=== PATIENT | male | born 1965 | race African-American/Black ===

== ENCOUNTER 2023-03-20 15:28 | Emergency (ER) | payer OTHER ==
[2023-03-20] MEDS ORDERED: KETOROLAC TROMETHAMINE 60 MG/2 ML VIAL IM ONE (16:00)
[2023-03-20] MEDS ORDERED: ACETAMINOPHEN 325 MG TABLET (FP) PO ONE (16:00)
[2023-03-20] MEDS ORDERED: METHOCARBAMOL 500 MG TABLET PO ONE (16:00)
[2023-03-20] MEDS ORDERED: LABETALOL HCL 100 MG TABLET (FP) PO ONE (16:00)
[2023-03-20] MEDS ORDERED: LIDOCAINE 5% TOPICAL PATCH TP ONE (16:00)
[2023-03-20 16:26] VITALS: RESP 18; TEMP 98.2; BMI 24.0
[2023-03-20] MEDS ORDERED: METHOCARBAMOL 500 MG TABLET ONE (16:51)
[2023-03-20] MEDS ORDERED: KETOROLAC TROMETHAMINE 30 MG/1 ML VIAL ONE (16:51)
[2023-03-20] MEDS ORDERED: ACETAMINOPHEN 500 MG TABLET (FP) ONE (16:51)
[2023-03-20] MEDS ORDERED: LABETALOL HCL 100 MG TABLET (FP) ONE (16:51)
[2023-03-20] MEDS ORDERED: LIDOCAINE 5% TOPICAL PATCH ONE (16:51)
[2023-03-20] MEDS ORDERED: amLODIPine BESYLATE 10 MG TABLET (FP) PO ONE (18:31)
[2023-03-20] MEDS ORDERED: amLODIPine BESYLATE 5 MG TABLET (FP) ONE (18:37)
[2023-03-20 18:44] VITALS: PULSE 66
[2023-03-20] MEDS ORDERED: cloNIDine HCL 0.1 MG TABLET PO ONE (19:48)
[2023-03-20] MEDS ORDERED: cloNIDine HCL 0.1 MG TABLET ONE (19:51)
[2023-03-20 20:47] VITALS: BP 187/127
[2023-03-20] MEDS ORDERED: LIDOCAINE PATCH REMOVAL MC SCH (22:00)
== END 2023-03-20 20:50 | disposition home or self-care (01) ==
LOC: FER 15:28
PROC: 3E0233Z Introduction of Anti-inflammatory into Muscle, Percutaneous Approach (ICD-10-PCS; principal; 2023-03-20)
DX: I10 Essential (primary) hypertension (principal); M79.602 Pain in left arm; G89.29 Other chronic pain
CPT/HCPCS: 73030-TC-LT-FY; 93005; 99284-25

== ENCOUNTER 2023-05-26 05:36 | Observation (INO) | payer OTHER ==
[2023-05-26] MEDS ORDERED: LIDOCAINE 1%/EPI 1:100000 (20 ML MULTI DOSE VIAL) IJ ONE (11:22)
[2023-05-26] MEDS ORDERED: THROMBIN (BOVINE) 5,000 UNIT VIAL TP ONE ×2 (11:23→14:10)
[2023-05-26] MEDS ORDERED: VANCOMYCIN 1 GM in D5W (PRE-DOCKED) 1,000 MG/250 ML (RESTRICTED TO ID ONLY IVPB ONE (11:23)
[2023-05-26] MEDS ORDERED: GENTAMICIN 80MG PREMIX BAG IVPB ONE (11:23)
[2023-05-26] MEDS ORDERED: ceFAZolin SODIUM 1 GM VIAL IVPB ONE (11:23)
[2023-05-26] MEDS ORDERED: HYDROGEN PEROXIDE 473 ML PO ONE (11:24)
[2023-05-26] MEDS ORDERED: GENTAMICIN SO4 80 MG/2 ML VIAL ONE (14:10)
[2023-05-26] MEDS ORDERED: BACITRACIN ZINC 15 GM TUBE TOPICAL OINTMENT ONE (14:10)
[2023-05-26] MEDS ORDERED: PROPOFOL 40 ML ONE (15:41)
[2023-05-26] MEDS ORDERED: FENTANYL CITRATE/PF 50 MCG/ML VIAL ONE (15:41)
[2023-05-26] MEDS ORDERED: ROCURONIUM BROMIDE 50 MG/5 ML SYRINGE ONE (15:41)
[2023-05-26] MEDS ORDERED: MIDAZOLAM HCL 2 MG/2 ML SINGLE DOSE VIAL ONE (15:41)
[2023-05-26] MEDS ORDERED: SUCCINYLCHOLINE CHLORIDE 200 MG/10 ML SYRINGE ONE (15:41)
[2023-05-26 16:18] LABS: EOS % 2.1 % (0-4.5); HEMATOCRIT 39.8 % (35.4-49); HEMOGLOBIN 13.2 GM/dL (11.7-16.9); LYMPH % 41.8 % (8-40); MCH 27.7 pg (25.7-33.7); MCHC 33.2 g/dl (32.0-35.9); MEAN CELL VOLUME 83.5 fl (80-96); MEAN PLT VOLUME 8.6 fl (7.5-11.1); MONO % 6.1 % (3.8-10.2); PLATELET COUNT 183 10^3/uL (134-434); RBC 4.76 M/mm3 (4.00-5.60); RDW 15.5 % (11.9-15.9); WHITE BLOOD COUNT 3.5 K/mm3 (4.0-10.0)
[2023-05-26 16:26] LABS: INR 0.97 (0.83-1.09); PROTHROMBIN TIME (PATIENT) 11.3 SEC (9.7-13.0)
[2023-05-26 16:29] LABS: ACTIVATED PTT 30.5 SECONDS (25.2-36.5)
[2023-05-26] MEDS ORDERED: hydrALAZINE HCL 20 MG/ML VIAL IVPUSH PRN (16:39)
[2023-05-26] MEDS ORDERED: NITROGLYCERIN SUBLINGUAL 1/150 0.4 MG TAB SL PRN (16:40)
[2023-05-26 16:44] LABS: CHLORIDE 106 mmol/L (98-107); POTASSIUM 3.9 mmol/L (3.5-5.1); SODIUM 139 mmol/L (136-145)
[2023-05-26] MEDS ORDERED: ACETAMINOPHEN 500 MG TABLET (FP) PO PRN (16:44)
[2023-05-26 16:47] LABS: ALBUMIN 3.6 g/dl (3.4-5.0); ANION GAP 8 mmol/L (4-13); BLOOD UREA NITROGEN 17.5 mg/dL (7-18); CALCIUM 9.2 mg/dL (8.5-10.1); CO2 25 mmol/L (21-32); GLUCOSE,RANDOM 87 mg/dL (74-106)
[2023-05-26 16:50] LABS: CREATININE 1.4 mg/dL (0.55-1.3); SGOT/AST 20 U/L (15-37); SGPT/ALT 32 U/L (13-61)
[2023-05-26 16:52] LABS: BILIRUBIN,TOTAL 0.5 mg/dL (0.2-1); TOT PROT 7.1 g/dl (6.4-8.2)
[2023-05-26 16:53] LABS: ALK PHOS 70 U/L (45-117)
[2023-05-26] MEDS ORDERED: ASPIRIN 81 MG CHEWABLE TABLETS PO ONE (18:22)
[2023-05-26] MEDS ORDERED: ENOXAPARIN NA (PORCINE) 100 MG/1 ML DISP.SYRIN SQ ONE (18:32)
[2023-05-26 18:51] VITALS: BMI 24.6
[2023-05-26] MEDS: ISOSORBIDE MONONITRATE 30 MG TAB.SR.24H (FP) PO SCH (18:56)
[2023-05-26] MEDS: ENOXAPARIN NA (PORCINE) 100 MG/1 ML DISP.SYRIN SQ SCH (18:56)
[2023-05-26] MEDS ORDERED: PATIENT'S OWN MEDICATION (NON-FORMULARY) (Clonidine Hcl [Clonidine Hcl Er] 0.1 MG Tab.Er.1 PO SCH (22:00)
[2023-05-26] MEDS ORDERED: LABETALOL HCL 100 MG TABLET (FP) PO SCH (22:00)
[2023-05-27] MEDS: ENOXAPARIN NA (PORCINE) 100 MG/1 ML DISP.SYRIN SQ SCH (06:27)
[2023-05-27 07:09] LABS: HEMATOCRIT 38.7 % (35.4-49); HEMOGLOBIN 12.4 GM/dL (11.7-16.9); MCH 27.3 pg (25.7-33.7); MEAN CELL VOLUME 85.4 fl (80-96); PLATELET COUNT 187 10^3/uL (134-434); RBC 4.53 M/mm3 (4.00-5.60); WHITE BLOOD COUNT 2.9 K/mm3 (4.0-10.0)
[2023-05-27 07:36] LABS: BLOOD UREA NITROGEN 23.5 mg/dL (7-18); CALCIUM 8.7 mg/dL (8.5-10.1)
[2023-05-27 07:37] LABS: POTASSIUM 4.3 mmol/L (3.5-5.1)
[2023-05-27 07:40] LABS: CREATININE 1.8 mg/dL (0.55-1.3)
[2023-05-27] MEDS: cloNIDine HCL 0.1 MG TABLET PO SCH ×2 (08:55→21:26)
[2023-05-27] MEDS ORDERED: CHLORTHALIDONE 25 MG TABLET PO SCH (10:00)
[2023-05-27] MEDS ORDERED: LISINOPRIL 20 MG TABLET PO SCH ×2 (10:00)
[2023-05-27] MEDS ORDERED: NEBIVOLOL 2.5 MG TABLET (FP) PO SCH (10:00)
[2023-05-27] MEDS ORDERED: LABETALOL HCL 100 MG TABLET (FP) PO SCH ×2 (10:28→10:29)
[2023-05-27] MEDS: ASPIRIN 81 MG CHEWABLE TABLETS PO SCH (10:53)
[2023-05-27] MEDS: NIFEdipine E.R. 90 MG TABLET PO SCH (10:54)
[2023-05-27] MEDS: ISOSORBIDE MONONITRATE 30 MG TAB.SR.24H (FP) PO SCH (10:54)
[2023-05-27] MEDS: LABETALOL HCL 200 MG TABLET (FP) PO SCH ×2 (12:34→21:26)
[2023-05-27] MEDS: HEPARIN NA (PORCINE) 5,000 UNITS/ML 1ML VIAL SQ SCH (21:25)
[2023-05-28] MEDS: cloNIDine HCL 0.1 MG TABLET PO SCH ×3 (06:27→21:48)
[2023-05-28] MEDS: NIFEdipine E.R. 90 MG TABLET PO SCH ×2 (06:28→10:11)
[2023-05-28 06:51] LABS: BASO % 0.6 % (0-2.0); EOS % 2.1 % (0-4.5); HEMATOCRIT 37.8 % (35.4-49); HEMOGLOBIN 12.1 GM/dL (11.7-16.9); LYMPH % 34.3 % (8-40); MCH 27.5 pg (25.7-33.7); MEAN CELL VOLUME 85.8 fl (80-96); MEAN PLT VOLUME 8.9 fl (7.5-11.1); MONO % 9.4 % (3.8-10.2); NEUT % 53.6 % (42.8-82.8); PLATELET COUNT 181 10^3/uL (134-434); RBC 4.41 M/mm3 (4.00-5.60); RDW 14.7 % (11.9-15.9); WHITE BLOOD COUNT 3.6 K/mm3 (4.0-10.0)
[2023-05-28 07:05] LABS: POTASSIUM 4.2 mmol/L (3.5-5.1)
[2023-05-28 07:08] LABS: CALCIUM 8.5 mg/dL (8.5-10.1)
[2023-05-28 07:09] LABS: ALBUMIN 3.4 g/dl (3.4-5.0); BLOOD UREA NITROGEN 26.8 mg/dL (7-18)
[2023-05-28 07:12] LABS: CREATININE 1.9 mg/dL (0.55-1.3)
[2023-05-28 07:14] LABS: BILIRUBIN,TOTAL 0.5 mg/dL (0.2-1); TOT PROT 6.6 g/dl (6.4-8.2)
[2023-05-28] MEDS ORDERED: ISOSORBIDE MONONITRATE 60 MG TAB.SR.24H (FP) PO ONE (08:11)
[2023-05-28] MEDS ORDERED: REGADENOSON 0.4 MG/5 ML PRE-FILLED SYRINGE IVPUSH ONE ×2 (08:31→09:30)
[2023-05-28] MEDS: LABETALOL HCL 200 MG TABLET (FP) PO SCH ×3 (08:32→23:31)
[2023-05-28] MEDS: ISOSORBIDE MONONITRATE 30 MG TAB.SR.24H (FP) PO SCH (10:11)
[2023-05-28] MEDS: ASPIRIN 81 MG CHEWABLE TABLETS PO SCH (10:20)
[2023-05-28] MEDS: HEPARIN NA (PORCINE) 5,000 UNITS/ML 1ML VIAL SQ SCH (10:20)
[2023-05-28 19:24] VITALS: RESP 18
[2023-05-28] MEDS: APIXABAN 5 MG TABLET PO SCH (21:48)
[2023-05-29 08:59] VITALS: BP 161/105; PULSE 76; TEMP 98.3
[2023-05-29] MEDS ORDERED: LISINOPRIL 20 MG TABLET PO SCH (10:00)
[2023-05-29] MEDS: cloNIDine HCL 0.1 MG TABLET PO SCH (10:02)
[2023-05-29] MEDS: LABETALOL HCL 200 MG TABLET (FP) PO SCH (10:02)
[2023-05-29] MEDS: ISOSORBIDE MONONITRATE 30 MG TAB.SR.24H (FP) PO SCH (10:02)
[2023-05-29] MEDS: APIXABAN 5 MG TABLET PO SCH (10:02)
[2023-05-29] MEDS: ASPIRIN 81 MG CHEWABLE TABLETS PO SCH (10:03)
[2023-05-29] MEDS: NIFEdipine E.R. 90 MG TABLET PO SCH (10:03)
== END 2023-05-29 13:15 | disposition home or self-care (01) ==
LOC: J2C 05:36 → INTOOBSV 05:36 → J4W 18:29
PROVIDERS: ADMIT Internal Medicine; ATTEND Internal Medicine
PROC: 0RG Upper Joints, Fusion (ICD-10-PCS; principal; 2023-05-26 12:30)
DX: M47.812 Spondylosis without myelopathy or radiculopathy, cervical region (principal); Z53.8 Procedure and treatment not carried out for other reasons; I16.0 Hypertensive urgency; M40.202 Unspecified kyphosis, cervical region; R07.9 Chest pain, unspecified; R79.9 Abnormal finding of blood chemistry, unspecified; I21.4 Non-ST elevation (NSTEMI) myocardial infarction; I77.819 Aortic ectasia, unspecified site; N17.9 Acute kidney failure, unspecified; I48.91 Unspecified atrial fibrillation; K21.9 Gastro-esophageal reflux disease without esophagitis
CPT/HCPCS: 36415; 78452-TC; 80048; 80053; 82550; 82553; 84484; 85025; 85027; 85610; 85730; 86850; 86900; 86901; 93005; 93010; 93017; 93306-TC; 94760; A9502; G0378; J1644; J2785

== ENCOUNTER 2024-06-20 10:44 | Observation (INO) | payer OTHER ==
[2024-06-20] MEDS ORDERED: ACETAMINOPHEN INJECTION 100 ML ONE (12:04)
[2024-06-20] MEDS: ACETAMINOPHEN 1000 MG/100 ML BAG IVPB ONE (12:14)
[2024-06-20 12:25] LABS: BASO % 0.6 % (0-2.0); EOS % 2.1 % (0-4.5); HEMATOCRIT 38.4 % (35.4-49); HEMOGLOBIN 12.3 GM/dL (11.7-16.9); LYMPH % 24.5 % (8-40); MCH 27.5 pg (25.7-33.7); MCHC 32.2 g/dl (32.0-35.9); MEAN CELL VOLUME 85.5 fl (80-96); MEAN PLT VOLUME 8.4 fl (7.5-11.1); MONO % 6.2 % (3.8-10.2); NEUT % 66.6 % (42.8-82.8); PLATELET COUNT 202 10^3/uL (134-434); RBC 4.49 M/mm3 (4.00-5.60); RDW 16.1 % (11.9-15.9); WHITE BLOOD COUNT 4.5 K/mm3 (4.0-10.0)
[2024-06-20 12:30] LABS: INR 0.95 (0.83-1.09); PROTHROMBIN TIME (PATIENT) 10.8 SEC (9.7-13.0)
[2024-06-20 12:33] LABS: ACTIVATED PTT 32.7 SECONDS (25.2-36.5)
[2024-06-20 12:39] LABS: POTASSIUM 4.1 mmol/L (3.5-5.1)
[2024-06-20 12:41] LABS: CALCIUM 9.3 mg/dL (8.5-10.1)
[2024-06-20 12:42] LABS: ALBUMIN 3.7 g/dl (3.4-5.0); BLOOD UREA NITROGEN 23.2 mg/dL (7-18); MAGNESIUM 1.9 mg/dL (1.8-2.4)
[2024-06-20 12:45] LABS: CREATININE 1.8 mg/dL (0.55-1.3)
[2024-06-20 12:47] LABS: BILIRUBIN,TOTAL 0.4 mg/dL (0.2-1); TOT PROT 7.6 g/dl (6.4-8.2)
[2024-06-20 12:50] LABS: N-TERMINAL BNP 1450.7 pg/ml (5-125)
[2024-06-20] MEDS ORDERED: ASPIRIN 81 MG CHEWABLE TABLETS ONE (13:08)
[2024-06-20] MEDS: ASPIRIN 81 MG CHEWABLE TABLETS PO ONE (13:09)
[2024-06-20] MEDS ORDERED: LIDOCAINE 4% PATCH TP ONE (15:30)
[2024-06-20] MEDS: LIDOCAINE 4% PATCH TP ONE (15:48)
[2024-06-20] MEDS ORDERED: cloNIDine HCL 0.1 MG TABLET ONE (15:49)
[2024-06-20] MEDS: cloNIDine HCL 0.1 MG TABLET PO ONE (15:52)
[2024-06-20 16:59] VITALS: BMI 25.3
[2024-06-20] MEDS: hydrALAZINE HCL 20 MG/ML VIAL IVPUSH ONE (17:00)
[2024-06-20] MEDS ORDERED: NIFEdipine E.R 60 MG TABLET PO ONE (20:19)
[2024-06-20] MEDS: NIFEdipine E.R 60 MG TABLET PO SCH (20:20)
[2024-06-20] MEDS: cloNIDine HCL 0.1 MG TABLET PO SCH (21:31)
[2024-06-20] MEDS: LABETALOL HCL 100 MG TABLET (FP) PO SCH (21:31)
[2024-06-20] MEDS: APIXABAN 5 MG TABLET PO SCH (21:31)
[2024-06-20] MEDS: LIDOCAINE PATCH REMOVAL MC SCH (21:34)
[2024-06-21 08:30] LABS: BASO % 0.8 % (0-2.0); EOS % 3.1 % (0-4.5); HEMATOCRIT 39.6 % (35.4-49); HEMOGLOBIN 12.9 GM/dL (11.7-16.9); LYMPH % 39.8 % (8-40); MCH 27.8 pg (25.7-33.7); MCHC 32.6 g/dl (32.0-35.9); MEAN CELL VOLUME 85.3 fl (80-96); MEAN PLT VOLUME 8.8 fl (7.5-11.1); MONO % 8.9 % (3.8-10.2); NEUT % 47.4 % (42.8-82.8); PLATELET COUNT 214 10^3/uL (134-434); RBC 4.65 M/mm3 (4.00-5.60); RDW 15.8 % (11.9-15.9); WHITE BLOOD COUNT 3.4 K/mm3 (4.0-10.0)
[2024-06-21 08:32] LABS: POTASSIUM 4.1 mmol/L (3.5-5.1)
[2024-06-21 08:33] LABS: CALCIUM 9.7 mg/dL (8.5-10.1)
[2024-06-21 08:34] LABS: BLOOD UREA NITROGEN 23.4 mg/dL (7-18)
[2024-06-21 08:37] LABS: CREATININE 1.8 mg/dL (0.55-1.3); PHOSPHOROUS 3.7 mg/dL (2.5-4.9)
[2024-06-21] MEDS: VALSARTAN 160 MG TABLET PO SCH (09:34)
[2024-06-21] MEDS: HYDROCHLOROTHIAZIDE 25 MG TABLET (FP) PO SCH (09:35)
[2024-06-21] MEDS ORDERED: PATIENT'S OWN MEDICATION (NON-FORMULARY) (Candesartan/Hydrochlorothiazid [Candesartan-Hctz PO SCH (10:00)
[2024-06-21 11:06] VITALS: RESP 18
[2024-06-21] MEDS: ACETAMINOPHEN 325 MG TABLET (FP) PO PRN (11:46)
[2024-06-21] MEDS: hydrALAZINE HCL 20 MG/ML VIAL IVPUSH PRN (18:41)
[2024-06-21] MEDS: LABETALOL HCL 200 MG TABLET (FP) PO SCH (22:26)
[2024-06-22 08:30] LABS: HEMATOCRIT 38.2 % (35.4-49); HEMOGLOBIN 12.6 GM/dL (11.7-16.9); MCH 28.3 pg (25.7-33.7); MEAN CELL VOLUME 85.6 fl (80-96); MEAN PLT VOLUME 8.6 fl (7.5-11.1); PLATELET COUNT 206 10^3/uL (134-434); RBC 4.46 M/mm3 (4.00-5.60); RDW 15.8 % (11.9-15.9); WHITE BLOOD COUNT 2.8 K/mm3 (4.0-10.0)
[2024-06-22 08:47] LABS: POTASSIUM 3.8 mmol/L (3.5-5.1)
[2024-06-22 08:53] LABS: ALBUMIN 3.7 g/dl (3.4-5.0)
[2024-06-22 08:56] LABS: BLOOD UREA NITROGEN 24.8 mg/dL (7-18); CALCIUM 9.4 mg/dL (8.5-10.1); MAGNESIUM 1.9 mg/dL (1.8-2.4)
[2024-06-22 09:00] LABS: PHOSPHOROUS 4.1 mg/dL (2.5-4.9)
[2024-06-22 09:01] LABS: BILIRUBIN,TOTAL 0.7 mg/dL (0.2-1)
[2024-06-22 09:02] LABS: CREATININE 1.8 mg/dL (0.55-1.3)
[2024-06-22 09:03] LABS: TOT PROT 7.3 g/dl (6.4-8.2)
[2024-06-22 09:06] VITALS: TEMP 98.2
[2024-06-22] MEDS ORDERED: REGADENOSON 0.4 MG/5 ML PRE-FILLED SYRINGE IVPUSH ONE (10:15)
[2024-06-22] MEDS: REGADENOSON 0.4 MG/5 ML PRE-FILLED SYRINGE IVPUSH ONE (10:35)
[2024-06-22 15:22] VITALS: BP 157/100; PULSE 76
== END 2024-06-22 16:00 | disposition home or self-care (01) ==
LOC: JER 10:44 → JERBED 14:30 → J4W 16:35
PROVIDERS: ADMIT Internal Medicine; ATTEND Internal Medicine
PROC: 3E033NZ Introduction of Analgesics, Hypnotics, Sedatives into Peripheral Vein, Percutaneous Approach (ICD-10-PCS; principal; 2024-06-20)
PROC: 3E033GC Introduction of Other Therapeutic Substance into Peripheral Vein, Percutaneous Approach (ICD-10-PCS; 2024-06-20)
DX: I16.0 Hypertensive urgency (principal); R79.89 Other specified abnormal findings of blood chemistry; I48.0 Paroxysmal atrial fibrillation; I12.9 Hypertensive chronic kidney disease with stage 1 through stage 4 chronic kidney disease, or unspecified chronic kidney disease; M47.812 Spondylosis without myelopathy or radiculopathy, cervical region; I77.819 Aortic ectasia, unspecified site; N17.9 Acute kidney failure, unspecified; N18.9 Chronic kidney disease, unspecified; R07.9 Chest pain, unspecified; Z79.01 Long term (current) use of anticoagulants
CPT/HCPCS: 36415; 71046-TC-FY; 78452-TC; 80048; 80053; 83735; 83880; 84100; 84484; 85025; 85027; 85610; 85730; 93005; 93010; 93017; 93306-TC; 96374; 96375; 96376; 99285-25; A9502; G0378; J0131; J2785

== ENCOUNTER 2024-06-28 06:15 | Inpatient (IN) | payer OTHER ==
[2024-06-28] MEDS ORDERED: GENTAMICIN SO4 80 MG/2 ML VIAL ONE ×2 (07:00→08:22)
[2024-06-28] MEDS ORDERED: BUPIVACAINE LIPOSOME/PF (EXPAREL) 266 MG/20 ML VIAL ONE (07:00)
[2024-06-28] MEDS ORDERED: BUPIVACAINE HCL/PF 0.5% (5MG/ML) 10 ML VIAL ONE (07:00)
[2024-06-28] MEDS ORDERED: LIDOCAINE 1%/EPI 1:100000 (20 ML MULTI DOSE VIAL) ONE ×2 (07:00→08:22)
[2024-06-28] MEDS ORDERED: BACITRACIN ZINC 15 GM TUBE TOPICAL OINTMENT ONE (07:13)
[2024-06-28] MEDS: ceFAZolin SODIUM 1 GM VIAL IVPB ONE ×3 (07:24→12:57)
[2024-06-28] MEDS: LIDOCAINE 1%/EPI 1:100000 (20 ML MULTI DOSE VIAL) IJ ONE ×2 (07:24→13:05)
[2024-06-28] MEDS: VANCOMYCIN 1 GM in D5W (PRE-DOCKED) 1,000 MG/250 ML (RESTRICTED TO ID ONLY IVPB ONE ×2 (07:34→13:05)
[2024-06-28] MEDS ORDERED: HYDROmorphone HCl 2 MG/ML VIAL ONE (08:11)
[2024-06-28] MEDS ORDERED: ROCURONIUM BROMIDE 50 MG/5 ML SYRINGE ONE ×3 (08:12→13:53)
[2024-06-28] MEDS ORDERED: MIDAZOLAM HCL 2 MG/2 ML SINGLE DOSE VIAL ONE (08:12)
[2024-06-28] MEDS ORDERED: PROPOFOL 20 ML ONE ×4 (08:12→15:26)
[2024-06-28] MEDS: THROMBIN (BOVINE) 5,000 UNIT VIAL TP ONE ×2 (09:53→13:30)
[2024-06-28] MEDS: GENTAMICIN SO4 80 MG/2 ML VIAL IVPB ONE ×2 (09:54→13:30)
[2024-06-28] MEDS: HYDROGEN PEROXIDE 473 ML PO ONE ×2 (09:56→13:30)
[2024-06-28] MEDS: BUPIVACAINE HCL/PF 0.5% (5MG/ML) 10 ML VIAL IJ ONE ×2 (13:41→15:30)
[2024-06-28] MEDS: BUPIVACAINE LIPOSOME/PF (EXPAREL) 266 MG/20 ML VIAL NR ONE ×2 (13:41→15:30)
[2024-06-28] MEDS ORDERED: SUGAMMADEX SODIUM 200 MG/2 ML VIAL ONE (15:26)
[2024-06-28] MEDS ORDERED: morphine CARPU-JECT 4 MG/1 ML DISP.SYRIN IVPUSH PRN (15:44)
[2024-06-28] MEDS ORDERED: oxyCODONE HCL 5 MG TABLET PO PRN ×2 (15:44)
[2024-06-28] MEDS ORDERED: diphenhydrAMINE HCL 25 MG CAPSULE (FP) PO PRN (15:44)
[2024-06-28] MEDS ORDERED: HEPARIN NA (PORCINE) 5,000 UNITS/ML 1ML VIAL SQ SCH (15:45)
[2024-06-28] MEDS: LACTATED RINGERS SOLUTION 1,000 ML/1,000 ML INFUS.BAG IV SCH (17:20)
[2024-06-28] MEDS ORDERED: HYDROmorphone HCL CARPU-JECT 2 MG/1 ML DISP.SYRIN ONE (18:13)
[2024-06-28] MEDS: HYDROmorphone HCl 2 MG/ML VIAL IVPUSH SCH (18:16)
[2024-06-28] MEDS: LABETALOL HCL 5 MG/1 ML (100MG/20 ML VIAL) IVPUSH ONE (18:17)
[2024-06-28] MEDS: HYDROmorphone HCl 2 MG/ML VIAL IVPUSH PRN (18:30)
[2024-06-28] MEDS: HYDROmorphone *PCA* 10MG/50ML DISP.SYRIN PCA SCH (18:47)
[2024-06-28] MEDS ORDERED: ceFAZolin SODIUM 1 GM VIAL ONE (19:09)
[2024-06-28] MEDS: CEFAZOLIN 1 GM/D5W 1 GM/50 ML BAG IVPB SCH (19:15)
[2024-06-28] MEDS: HEPARIN NA (PORCINE) 5,000 UNITS/ML 1ML VIAL SQ SCH (21:38)
[2024-06-28] MEDS: NIFEdipine E.R. 90 MG TABLET PO SCH (21:38)
[2024-06-28] MEDS: LABETALOL HCL 200 MG TABLET (FP) PO SCH (21:38)
[2024-06-28] MEDS: DOCUSATE SODIUM 100 MG CAPSULE (FP) PO SCH (21:38)
[2024-06-28] MEDS: ONDANSETRON 4 MG/2 ML VIAL IVPUSH PRN (22:24)
[2024-06-28 23:11] VITALS: BMI 21.7
[2024-06-29] MEDS: cloNIDine HCL 0.1 MG TABLET PO SCH (00:04)
[2024-06-29] MEDS: hydrALAZINE HCL 20 MG/ML VIAL IVPUSH ONE (02:47)
[2024-06-29] MEDS: HYDROCHLOROTHIAZIDE 12.5 MG CAPSULE (FP) PO ONE (08:01)
[2024-06-29 09:35] LABS: HEMATOCRIT 36.8 % (35.4-49); HEMOGLOBIN 11.8 GM/dL (11.7-16.9); MCH 27.6 pg (25.7-33.7); MEAN CELL VOLUME 86.1 fl (80-96); MEAN PLT VOLUME 9.1 fl (7.5-11.1); PLATELET COUNT 204 10^3/uL (134-434); RBC 4.28 M/mm3 (4.00-5.60); RDW 15.2 % (11.9-15.9); WHITE BLOOD COUNT 7.9 K/mm3 (4.0-10.0)
[2024-06-29 09:49] LABS: POTASSIUM 3.8 mmol/L (3.5-5.1)
[2024-06-29 09:59] LABS: BLOOD UREA NITROGEN 22.2 mg/dL (7-18)
[2024-06-29] MEDS: FERROUS SO4 325 MG TABLET (FP) PO SCH (10:01)
[2024-06-29] MEDS: VALSARTAN 160 MG TABLET PO SCH (10:01)
[2024-06-29] MEDS: FOLIC ACID 1 MG TABLET (FP) PO SCH (10:01)
[2024-06-29 10:02] LABS: CALCIUM 9.5 mg/dL (8.5-10.1)
[2024-06-29 10:03] LABS: CREATININE 1.8 mg/dL (0.55-1.3)
[2024-06-29] MEDS ORDERED: ACETAMINOPHEN 650 MG/20.3 ML ORAL SOLUTION (CUPS) PO PRN (13:33)
[2024-06-29] MEDS ORDERED: diazePAM 2 MG TABLET PO PRN (14:00)
[2024-06-29] MEDS: ACETAMINOPHEN 650 MG/20.3 ML ORAL SOLUTION (CUPS) PO SCH (14:33)
[2024-06-29 14:50] LABS: EPI CELLS 5 /uL (0-25.1); HYALINE CASTS 0 /uL (0-3.1); URINE APPEARANCE CLOUDY; URINE BACTERIA 8 /uL (0-1359); URINE BILIRUBIN NEGATIVE (NEGATIVE); URINE COLOR YELLOW; URINE GLUCOSE (UA) NEGATIVE (NEGATIVE); URINE KETONE NEGATIVE (NEGATIVE); URINE LEUK ESTERASE 1+ (NEGATIVE); URINE NITRITE NEGATIVE (NEGATIVE); URINE PROTEIN 2+ (NEGATIVE); URINE RBC 1017 /uL (0-23.9); URINE UROBILINOGEN 0.2 mg/dL (0.2-1.0); URINE WBC 34 /uL (0-25.8)
[2024-06-30 10:32] LABS: BASO % 0.3 % (0-2.0); EOS % 0.2 % (0-4.5); HEMATOCRIT 35.7 % (35.4-49); HEMOGLOBIN 11.4 GM/dL (11.7-16.9); LYMPH % 11.4 % (8-40); MCH 27.4 pg (25.7-33.7); MCHC 31.8 g/dl (32.0-35.9); MEAN CELL VOLUME 86.3 fl (80-96); MEAN PLT VOLUME 9.1 fl (7.5-11.1); MONO % 7.5 % (3.8-10.2); NEUT % 80.6 % (42.8-82.8); PLATELET COUNT 191 10^3/uL (134-434); RBC 4.14 M/mm3 (4.00-5.60); RDW 15.4 % (11.9-15.9); WHITE BLOOD COUNT 8.1 K/mm3 (4.0-10.0)
[2024-06-30 10:49] LABS: POTASSIUM 3.8 mmol/L (3.5-5.1)
[2024-06-30 10:55] LABS: ALBUMIN 3.3 g/dl (3.4-5.0); BLOOD UREA NITROGEN 21.8 mg/dL (7-18); CALCIUM 9.3 mg/dL (8.5-10.1)
[2024-06-30 10:58] LABS: CREATININE 1.8 mg/dL (0.55-1.3)
[2024-06-30 10:59] LABS: BILIRUBIN,TOTAL 0.6 mg/dL (0.2-1)
[2024-06-30 11:00] LABS: TOT PROT 6.6 g/dl (6.4-8.2)
[2024-06-30] MEDS: HYDROCHLOROTHIAZIDE 12.5 MG CAPSULE (FP) PO SCH (12:43)
[2024-06-30] MEDS ORDERED: oxyCODONE HCL 5 MG TABLET PO PRN ×2 (14:37)
[2024-06-30] MEDS ORDERED: HYDROmorphone HCl 2 MG/ML VIAL IVPB PRN (14:37)
[2024-07-01 10:42] VITALS: BP 167/101; PULSE 94; RESP 18; TEMP 98.4
== END 2024-07-01 14:07 | disposition home or self-care (01) | DRG 451 ==
LOC: J7W 06:15 → J2C 08:44 → J8W 19:53
PROVIDERS: ADMIT Neurological Surgery; ATTEND Nurse Practitioner Family
PROC: 0RP104Z Removal of Internal Fixation Device from Cervical Vertebral Joint, Open Approach (ICD-10-PCS; 2024-06-28)
PROC: 0RG2071 Fusion of 2 or more Cervical Vertebral Joints with Autologous Tissue Substitute, Posterior Approach, Posterior Column, Open Approach (ICD-10-PCS; 2024-06-28)
PROC: 0RG4071 Fusion of Cervicothoracic Vertebral Joint with Autologous Tissue Substitute, Posterior Approach, Posterior Column, Open Approach (ICD-10-PCS; 2024-06-28)
PROC: 00NW0ZZ Release Cervical Spinal Cord, Open Approach (ICD-10-PCS; 2024-06-28)
PROC: 4A1004G Monitoring of Central Nervous Electrical Activity, Intraoperative, Open Approach (ICD-10-PCS; 2024-06-28)
PROC: 0RGA071 Fusion of Thoracolumbar Vertebral Joint with Autologous Tissue Substitute, Posterior Approach, Posterior Column, Open Approach (ICD-10-PCS; principal; 2024-06-28 08:00)
DX: M96.0 Pseudarthrosis after fusion or arthrodesis (principal); G95.9 Disease of spinal cord, unspecified; M50.03 Cervical disc disorder with myelopathy, cervicothoracic region; M48.03 Spinal stenosis, cervicothoracic region; M47.892 Other spondylosis, cervical region; I48.0 Paroxysmal atrial fibrillation; I12.9 Hypertensive chronic kidney disease with stage 1 through stage 4 chronic kidney disease, or unspecified chronic kidney disease; N18.9 Chronic kidney disease, unspecified; Y83.9 Surgical procedure, unspecified as the cause of abnormal reaction of the patient, or of later complication, without mention of misadventure at the time of the procedure
CPT/HCPCS: 36415; 72125-TC; 76000-TC-FY; 80048; 80053; 81003; 83735; 85025; 85027; 86850; 86900; 86901; 93005; 93010; 94760; 97116-GP; 97161-GP; C1713; J1644

== ENCOUNTER 2025-01-06 16:52 | Inpatient (IN) | payer OTHER ==
[2025-01-06] MEDS: SODIUM CHLORIDE 1,000 ML IV SCH ×2 (17:50→22:34)
[2025-01-06] MEDS: SODIUM CHLORIDE 1,000 ML IV STA (17:55)
[2025-01-06 18:14] LABS: ABSOLUTE IMMATURE GRANULOCYTES 0.01 x10^3/uL (0.0-0.031); BASOPHILS # 0.01 x10^3/uL (0.01-0.08); EOSINOPHIL % 2.5 % (0.8-7.0); EOSINOPHILS # 0.12 x10^3/uL (0.04-0.54); HEMATOCRIT 37.3 % (40.1-51.0); HEMOGLOBIN 11.6 g/dL (13.7-17.5); MCHC 31.1 g/dl (32.3-36.5); MEAN CELL VOLUME 85.4 fl (79.0-92.2); MEAN PLT VOLUME 10.4 fl (9.4-12.4); MONOCYTE % 8.4 % (5.3-12.2); PLATELET COUNT 209 x10^3/uL (163-337); RDW 15.7 % (12.2-16.1)
[2025-01-06 18:26] LABS: ACTIVATED PTT 29.1 SECONDS (25.2-36.5)
[2025-01-06 18:40] LABS: CHLORIDE 107 mmol/L (98-107); POTASSIUM 4.4 mmol/L (3.5-5.1); SODIUM 139 mmol/L (136-145)
[2025-01-06 18:44] LABS: ALBUMIN 3.7 g/dl (3.4-5.0); ANION GAP 6 mmol/L (4-13); CALCIUM 9.2 mg/dL (8.5-10.1); CO2 26 mmol/L (21-32)
[2025-01-06 18:46] LABS: GLUCOSE,RANDOM 100 mg/dL (74-106)
[2025-01-06 18:47] LABS: BLOOD UREA NITROGEN 25.7 mg/dL (7-18)
[2025-01-06 18:48] LABS: CREATININE 1.9 mg/dL (0.55-1.3)
[2025-01-06 18:50] LABS: CHOLESTEROL 220 mg/dL (50-200); SGOT/AST 18 U/L (15-37); SGPT/ALT 14 U/L (13-61); TOT PROT 7.4 g/dl (6.4-8.2)
[2025-01-06 18:51] LABS: BILIRUBIN,TOTAL 0.3 mg/dL (0.2-1); LDL CHOLESTEROL (ONLY SJRH) 91 mg/dL (5-100)
[2025-01-06 18:53] LABS: ALK PHOS 66 U/L (45-117); HDL CHOLESTEROL 74 mg/dL (40-60)
[2025-01-06 19:17] LABS: EPI CELLS 4 /uL (0-25.1); HYALINE CASTS 0 /uL (0-3.1); URINE APPEARANCE CLEAR; URINE BACTERIA 17 /uL (0-1359); URINE BILIRUBIN NEGATIVE (NEGATIVE); URINE COLOR YELLOW; URINE GLUCOSE (UA) NEGATIVE (NEGATIVE); URINE KETONE NEGATIVE (NEGATIVE); URINE LEUK ESTERASE NEGATIVE (NEGATIVE); URINE NITRITE NEGATIVE (NEGATIVE); URINE PROTEIN 1+ (NEGATIVE); URINE RBC 6 /uL (0-23.9); URINE UROBILINOGEN 0.2 mg/dL (0.2-1.0); URINE WBC 7 /uL (0-25.8)
[2025-01-06] MEDS ORDERED: ASPIRIN COATED 81 MG TABLET.EC ONE (19:27)
[2025-01-06] MEDS: ASPIRIN COATED 81 MG TABLET.EC PO ONE (19:37)
[2025-01-06] MEDS ORDERED: ACETAMINOPHEN INJECTION 100 ML ONE (21:02)
[2025-01-06] MEDS: ACETAMINOPHEN 1000 MG/100 ML BAG IVPB ONE (21:24)
[2025-01-06] MEDS ORDERED: hydrALAZINE HCL 20 MG/ML VIAL ONE (22:29)
[2025-01-06] MEDS: hydrALAZINE HCL 20 MG/ML VIAL IVPUSH ONE (22:33)
[2025-01-07] MEDS: LABETALOL HCL 20 MG/4 ML VIAL IVPUSH ONE (03:13)
[2025-01-07 07:14] LABS: ABSOLUTE IMMATURE GRANULOCYTES 0.01 x10^3/uL (0.0-0.031); BASOPHILS # 0.02 x10^3/uL (0.01-0.08); EOSINOPHIL % 2.6 % (0.8-7.0); EOSINOPHILS # 0.11 x10^3/uL (0.04-0.54); HEMATOCRIT 38.5 % (40.1-51.0); HEMOGLOBIN 12.3 g/dL (13.7-17.5); MCHC 31.9 g/dl (32.3-36.5); MEAN CELL VOLUME 83.9 fl (79.0-92.2); MEAN PLT VOLUME 10.6 fl (9.4-12.4); MONOCYTE # 0.35 x10^3/uL (0.30-0.82); MONOCYTE % 8.4 % (5.3-12.2); PLATELET COUNT 215 x10^3/uL (163-337); RDW 15.4 % (12.2-16.1)
[2025-01-07 07:33] LABS: POTASSIUM 3.9 mmol/L (3.5-5.1)
[2025-01-07 07:54] LABS: ALBUMIN 3.6 g/dl (3.4-5.0); BLOOD UREA NITROGEN 18.5 mg/dL (7-18); CALCIUM 9.6 mg/dL (8.5-10.1)
[2025-01-07 07:55] LABS: MAGNESIUM 2.1 mg/dL (1.8-2.4)
[2025-01-07 07:57] LABS: CREATININE 1.5 mg/dL (0.55-1.3)
[2025-01-07 07:58] LABS: PHOSPHOROUS 3.3 mg/dL (2.5-4.9)
[2025-01-07 07:59] LABS: BILIRUBIN,TOTAL 0.5 mg/dL (0.2-1); TOT PROT 7.3 g/dl (6.4-8.2)
[2025-01-07] MEDS: HYDROCHLOROTHIAZIDE 25 MG TABLET (FP) PO SCH (09:23)
[2025-01-07] MEDS: NIFEdipine E.R 60 MG TABLET PO SCH (09:23)
[2025-01-07] MEDS: SPIRONOLACTONE 25 MG TABLET PO SCH (09:23)
[2025-01-07] MEDS: PREGABALIN 75 MG CAPSULE PO SCH (09:23)
[2025-01-07] MEDS: LABETALOL HCL 200 MG TABLET (FP) PO SCH (09:23)
[2025-01-07] MEDS: VALSARTAN 160 MG TABLET PO SCH (09:23)
[2025-01-07] MEDS ORDERED: PATIENT'S OWN MEDICATION (NON-FORMULARY) (Candesartan/Hydrochlorothiazid [Candesartan-Hctz PO SCH (10:00)
[2025-01-07] MEDS ORDERED: APIXABAN 5 MG TABLET PO SCH (10:00)
[2025-01-07] MEDS ORDERED: ENOXAPARIN NA (PORCINE) 40 MG/0.4 ML DISP.SYRIN SQ SCH (10:00)
[2025-01-07] MEDS ORDERED: LABETALOL HCL 200 MG TABLET (FP) PO SCH (10:00)
[2025-01-07] MEDS: hydrALAZINE HCL 25 MG TABLET (FP) PO SCH (12:45)
[2025-01-07] MEDS: cloNIDine-TTS 0.3 MG /24 HRS PATCH.TDWK TD SCH (13:24)
[2025-01-07] MEDS: ATORVASTATIN CA 40 MG TABLET (FP) PO SCH (22:03)
[2025-01-08] MEDS: HYDROCHLOROTHIAZIDE 25 MG TABLET (FP) PO SCH (09:02)
[2025-01-08 11:51] LABS: HEMATOCRIT 42.9 % (40.1-51.0); HEMOGLOBIN 13.7 g/dL (13.7-17.5); MCHC 31.9 g/dl (32.3-36.5); MEAN PLT VOLUME 11.1 fl (9.4-12.4); PLATELET COUNT 250 x10^3/uL (163-337); RDW 15.5 % (12.2-16.1)
[2025-01-08 12:10] LABS: POTASSIUM 4.3 mmol/L (3.5-5.1)
[2025-01-08 12:13] LABS: CALCIUM 9.9 mg/dL (8.5-10.1)
[2025-01-08 12:16] LABS: CREATININE 1.9 mg/dL (0.55-1.3)
[2025-01-08] MEDS: APIXABAN 5 MG TABLET PO SCH ×2 (14:00→21:25)
[2025-01-08] MEDS: ASPIRIN COATED 81 MG TABLET.EC PO SCH (16:12)
[2025-01-09 07:51] LABS: HEMOGLOBIN 12.8 g/dL (13.7-17.5); MEAN CELL VOLUME 83.3 fl (79.0-92.2); MEAN PLT VOLUME 11.2 fl (9.4-12.4); PLATELET COUNT 225 x10^3/uL (163-337); RDW 15.1 % (12.2-16.1)
[2025-01-09 08:05] LABS: POTASSIUM 3.7 mmol/L (3.5-5.1)
[2025-01-09 08:06] LABS: CALCIUM 9.6 mg/dL (8.5-10.1)
[2025-01-09 08:08] LABS: BLOOD UREA NITROGEN 29.8 mg/dL (7-18)
[2025-01-09] MEDS: LORazepam 2 MG/ML SDV VIAL IVPUSH ONE (19:26)
[2025-01-09 21:50] VITALS: BMI 27.0
[2025-01-09] MEDS ORDERED: hydrALAZINE HCL 25 MG TABLET (FP) PO SCH (22:00)
[2025-01-09] MEDS: PRAMIPEXOLE DIHYDROCHLORIDE 0.25 MG TABLET PO SCH (22:15)
[2025-01-09] MEDS: DIVALPROEX NA *ER* EXTEND REL 500 MG TABLET.SA (FP) PO SCH (22:15)
[2025-01-09 23:55] VITALS: RESP 18
[2025-01-10 06:46] LABS: HEMOGLOBIN 12.2 g/dL (13.7-17.5); RDW 15.1 % (12.2-16.1)
[2025-01-10 06:47] LABS: BASOPHILS # 0.02 x10^3/uL (0.01-0.08); EOSINOPHIL % 2.8 % (0.8-7.0); EOSINOPHILS # 0.09 x10^3/uL (0.04-0.54); HEMATOCRIT 38.1 % (40.1-51.0); MEAN CELL VOLUME 83.7 fl (79.0-92.2); MEAN PLT VOLUME 10.5 fl (9.4-12.4); MONOCYTE # 0.35 x10^3/uL (0.30-0.82); MONOCYTE % 10.8 % (5.3-12.2); PLATELET COUNT 207 x10^3/uL (163-337)
[2025-01-10 07:10] LABS: BLOOD UREA NITROGEN 29.2 mg/dL (7-18); CALCIUM 9.6 mg/dL (8.5-10.1)
[2025-01-10 07:14] LABS: CREATININE 2.1 mg/dL (0.55-1.3)
[2025-01-10 09:42] VITALS: BP 132/86; PULSE 86; TEMP 97.7
== END 2025-01-10 14:40 | disposition home or self-care (01) | DRG 93 ==
LOC: JER 16:52 → JERBED 21:10 → OBSVTOIN 21:13 → J4W 01-07 00:05
PROVIDERS: ADMIT Hospitalist; ATTEND Internal Medicine
DX: R20.2 Paresthesia of skin (principal); R53.1 Weakness; G25.81 Restless legs syndrome; I12.9 Hypertensive chronic kidney disease with stage 1 through stage 4 chronic kidney disease, or unspecified chronic kidney disease; N18.31 Chronic kidney disease, stage 3a; M47.892 Other spondylosis, cervical region; I48.0 Paroxysmal atrial fibrillation; E78.5 Hyperlipidemia, unspecified; I95.1 Orthostatic hypotension
CPT/HCPCS: 36415; 70450-TC; 70551-TC; 72141-TC; 72156-TC; 80048; 80053; 80061; 81003; 82550; 82553; 82962; 83036; 83735; 84100; 84484; 85025; 85027; 85610; 85730; 86850; 86900; 86901; 87086; 93005; 93010; 93306-TC; 93880-TC; 99285-25; A9576; G0378

== ENCOUNTER 2025-05-30 10:19 | Inpatient (IN) | payer OTHER ==
[2025-05-30 11:14] LABS: ABSOLUTE IMMATURE GRANULOCYTES 0.01 x10^3/uL (0.0-0.031); BASOPHILS # 0.03 x10^3/uL (0.01-0.08); EOSINOPHIL % 2.0 % (0.8-7.0); EOSINOPHILS # 0.13 x10^3/uL (0.04-0.54); MCHC 31.7 g/dl (32.3-36.5); MEAN CELL VOLUME 87.5 fl (79.0-92.2); MEAN PLT VOLUME 10.7 fl (9.4-12.4); MONOCYTE # 0.46 x10^3/uL (0.30-0.82); MONOCYTE % 7.0 % (5.3-12.2); RDW 14.5 % (12.2-16.1)
[2025-05-30 11:21] LABS: INR 0.94 (0.83-1.09); PROTHROMBIN TIME (PATIENT) 10.2 SEC (9.7-13.0)
[2025-05-30 11:23] LABS: ACTIVATED PTT 28.8 SECONDS (25.2-36.5)
[2025-05-30] MEDS: SODIUM CHLORIDE 0.9% 500 ML INFUS.BAG IV ONE (11:25)
[2025-05-30] MEDS: SODIUM CHLORIDE 1,000 ML IV SCH (11:26)
[2025-05-30 11:36] LABS: URINE APPEARANCE CLEAR; URINE BILIRUBIN NEGATIVE (NEGATIVE); URINE COLOR YELLOW; URINE GLUCOSE (UA) NEGATIVE (NEGATIVE); URINE KETONE NEGATIVE (NEGATIVE); URINE LEUK ESTERASE NEGATIVE (NEGATIVE); URINE NITRITE NEGATIVE (NEGATIVE); URINE PROTEIN NEGATIVE (NEGATIVE); URINE UROBILINOGEN 0.2 mg/dL (0.2-1.0)
[2025-05-30 11:39] LABS: GLUCOSE,RANDOM 107 mg/dL (74-106); TOT PROT 7.2 g/dl (6.4-8.2)
[2025-05-30 11:40] LABS: CO2 27 mmol/L (21-32)
[2025-05-30 11:41] LABS: ALK PHOS 50 U/L (40-150)
[2025-05-30 11:44] LABS: CREATININE 1.84 mg/dL (0.55-1.3); LDL CHOLESTEROL (ONLY SJRH) 61 mg/dL (5-100); SGOT/AST 18 U/L (5-34); SGPT/ALT 12 U/L (0-55)
[2025-05-30] MEDS ORDERED: TETRACAINE 0.5% OPHTH SOLN 2 ML BOTTLE ONE (12:09)
[2025-05-30] MEDS ORDERED: ACETAMINOPHEN INJECTION 100 ML ONE (12:09)
[2025-05-30] MEDS ORDERED: TETRAHYDROZOLINE HCL EYE DROPS OD ONE (12:15)
[2025-05-30] MEDS ORDERED: GABAPENTIN 300 MG CAPSULE ONE (13:24)
[2025-05-30] MEDS: GABAPENTIN 300 MG CAPSULE PO ONE (13:30)
[2025-05-30] MEDS: LABETALOL HCL 200 MG TABLET (FP) PO ONE (17:34)
[2025-05-30] MEDS: LABETALOL HCL 20 MG/4 ML VIAL IVPUSH ONE ×2 (19:03→20:39)
[2025-05-30] MEDS ORDERED: CANDESARTAN CILEXETIL PO SCH (22:00)
[2025-05-30] MEDS: LABETALOL HCL 200 MG TABLET (FP) PO SCH (22:04)
[2025-05-30] MEDS: NIFEdipine E.R 60 MG TABLET PO SCH (22:04)
[2025-05-30] MEDS: APIXABAN 5 MG TABLET PO SCH (22:04)
[2025-05-30] MEDS: ATORVASTATIN CA 80 MG TABLET (FP) PO SCH (22:05)
[2025-05-30] MEDS: VALSARTAN 160 MG TABLET PO SCH (22:05)
[2025-05-30 23:45] LABS: HIV INTERPRETATION NEGATIVE (NEGATIVE)
[2025-05-30 23:46] LABS: HCV DIAGNOSTIC IN-HOUSE W/RFLX NON-REACTIVE (NONREACTIVE)
[2025-05-31 07:47] LABS: ABSOLUTE IMMATURE GRANULOCYTES 0.00 x10^3/uL (0.0-0.031); BASOPHILS # 0.03 x10^3/uL (0.01-0.08); EOSINOPHIL % 2.9 % (0.8-7.0); EOSINOPHILS # 0.13 x10^3/uL (0.04-0.54); MCHC 32.0 g/dl (32.3-36.5); MEAN CELL VOLUME 86.1 fl (79.0-92.2); MEAN PLT VOLUME 10.8 fl (9.4-12.4); MONOCYTE # 0.33 x10^3/uL (0.30-0.82); MONOCYTE % 7.4 % (5.3-12.2); RDW 14.4 % (12.2-16.1)
[2025-05-31 08:16] LABS: GLUCOSE,RANDOM 103.0 mg/dL (74-106); TOT PROT 7.1 g/dl (6.4-8.2)
[2025-05-31 08:18] LABS: CO2 25.0 mmol/L (21-32)
[2025-05-31 08:19] LABS: ALK PHOS 53.0 U/L (40-150)
[2025-05-31 08:22] LABS: CREATININE 1.66 mg/dL (0.55-1.3); SGOT/AST 18.0 U/L (5-34); SGPT/ALT 10.0 U/L (0-55)
[2025-05-31] MEDS ORDERED: SPIRONOLACTONE 25 MG TABLET PO SCH (10:00)
[2025-05-31] MEDS: CHLORTHALIDONE 25 MG TABLET PO SCH (14:01)
[2025-06-01 07:31] LABS: ABSOLUTE IMMATURE GRANULOCYTES 0.01 x10^3/uL (0.0-0.031); BASOPHILS # 0.02 x10^3/uL (0.01-0.08); EOSINOPHIL % 2.1 % (0.8-7.0); EOSINOPHILS # 0.10 x10^3/uL (0.04-0.54); MCHC 31.7 g/dl (32.3-36.5); MEAN CELL VOLUME 85.6 fl (79.0-92.2); MEAN PLT VOLUME 10.5 fl (9.4-12.4); MONOCYTE # 0.40 x10^3/uL (0.30-0.82); MONOCYTE % 8.5 % (5.3-12.2); RDW 13.9 % (12.2-16.1)
[2025-06-01 07:53] LABS: GLUCOSE,RANDOM 103.0 mg/dL (74-106); TOT PROT 6.8 g/dl (6.4-8.2)
[2025-06-01 07:54] LABS: CO2 23.0 mmol/L (21-32)
[2025-06-01 07:56] LABS: ALK PHOS 52.0 U/L (40-150)
[2025-06-01 07:58] LABS: CREATININE 1.9 mg/dL (0.55-1.3); SGOT/AST 18.0 U/L (5-34); SGPT/ALT 10.0 U/L (0-55)
[2025-06-01] MEDS: LIDOCAINE 5% TOPICAL PATCH TP SCH (10:31)
[2025-06-01] MEDS: ACETAMINOPHEN 500 MG TABLET (FP) PO SCH (10:31)
[2025-06-01] MEDS: ACETAMINOPHEN 325 MG TABLET (FP) PO PRN (15:19)
[2025-06-01] MEDS: LIDOCAINE PATCH REMOVAL MC SCH (21:42)
[2025-06-02 08:06] LABS: ABSOLUTE IMMATURE GRANULOCYTES 0.01 x10^3/uL (0.0-0.031); BASOPHILS # 0.03 x10^3/uL (0.01-0.08); EOSINOPHIL % 3.2 % (0.8-7.0); EOSINOPHILS # 0.10 x10^3/uL (0.04-0.54); MCHC 32.3 g/dl (32.3-36.5); MEAN CELL VOLUME 85.6 fl (79.0-92.2); MEAN PLT VOLUME 10.9 fl (9.4-12.4); MONOCYTE # 0.35 x10^3/uL (0.30-0.82); MONOCYTE % 11.1 % (5.3-12.2); RDW 14.0 % (12.2-16.1)
[2025-06-02 08:35] LABS: GLUCOSE,RANDOM 111.0 mg/dL (74-106); TOT PROT 6.8 g/dl (6.4-8.2)
[2025-06-02 08:36] LABS: CO2 25.0 mmol/L (21-32)
[2025-06-02 08:38] LABS: ALK PHOS 49.0 U/L (40-150)
[2025-06-02 08:41] LABS: CREATININE 1.94 mg/dL (0.55-1.3); SGOT/AST 16.0 U/L (5-34); SGPT/ALT 11.0 U/L (0-55)
[2025-06-02 12:18] LABS: URINE APPEARANCE CLEAR; URINE BILIRUBIN NEGATIVE (NEGATIVE); URINE COLOR YELLOW; URINE GLUCOSE (UA) NEGATIVE (NEGATIVE); URINE KETONE NEGATIVE (NEGATIVE); URINE LEUK ESTERASE NEGATIVE (NEGATIVE); URINE NITRITE NEGATIVE (NEGATIVE); URINE PROTEIN NEGATIVE (NEGATIVE); URINE UROBILINOGEN 0.2 mg/dL (0.2-1.0)
[2025-06-03 07:58] LABS: ABSOLUTE IMMATURE GRANULOCYTES 0.01 x10^3/uL (0.0-0.031); BASOPHILS # 0.02 x10^3/uL (0.01-0.08); EOSINOPHIL % 2.8 % (0.8-7.0); EOSINOPHILS # 0.09 x10^3/uL (0.04-0.54); MCHC 32.0 g/dl (32.3-36.5); MEAN CELL VOLUME 85.2 fl (79.0-92.2); MEAN PLT VOLUME 10.9 fl (9.4-12.4); MONOCYTE # 0.35 x10^3/uL (0.30-0.82); MONOCYTE % 10.8 % (5.3-12.2); RDW 13.7 % (12.2-16.1)
[2025-06-03 08:22] LABS: GLUCOSE,RANDOM 96.0 mg/dL (74-106); TOT PROT 6.8 g/dl (6.4-8.2)
[2025-06-03 08:23] LABS: CO2 25.0 mmol/L (21-32)
[2025-06-03 08:24] LABS: ALK PHOS 49.0 U/L (40-150)
[2025-06-03 08:27] LABS: CREATININE 1.9 mg/dL (0.55-1.3); SGOT/AST 16.0 U/L (5-34); SGPT/ALT 8.0 U/L (0-55)
[2025-06-03] MEDS: POLYETHYLENE GLYCOL (HEALTHYLAX) 3350 17 GM PACKET PO SCH (09:53)
[2025-06-03] MEDS: DOCUSATE SODIUM 100 MG CAPSULE (FP) PO ONE (09:59)
[2025-06-03] MEDS: DOCUSATE SODIUM 100 MG CAPSULE (FP) PO SCH (14:27)
[2025-06-04 07:42] LABS: ABSOLUTE IMMATURE GRANULOCYTES 0.01 x10^3/uL (0.0-0.031); BASOPHILS # 0.03 x10^3/uL (0.01-0.08); EOSINOPHIL % 3.3 % (0.8-7.0); EOSINOPHILS # 0.12 x10^3/uL (0.04-0.54); MCHC 31.7 g/dl (32.3-36.5); MEAN CELL VOLUME 86.2 fl (79.0-92.2); MEAN PLT VOLUME 10.9 fl (9.4-12.4); MONOCYTE # 0.38 x10^3/uL (0.30-0.82); MONOCYTE % 10.6 % (5.3-12.2); RDW 13.7 % (12.2-16.1)
[2025-06-04 08:04] LABS: GLUCOSE,RANDOM 96.0 mg/dL (74-106)
[2025-06-04 08:05] LABS: TOT PROT 6.8 g/dl (6.4-8.2)
[2025-06-04 08:06] LABS: CO2 26.0 mmol/L (21-32)
[2025-06-04 08:07] LABS: ALK PHOS 48.0 U/L (40-150)
[2025-06-04 08:10] LABS: SGOT/AST 17.0 U/L (5-34); SGPT/ALT 8.0 U/L (0-55)
[2025-06-04 08:11] LABS: CREATININE 1.85 mg/dL (0.55-1.3)
[2025-06-04] MEDS: GABAPENTIN 100 MG CAPSULE PO SCH (11:32)
[2025-06-04] MEDS: LIDOCAINE 5% TOPICAL PATCH TP SCH (11:33)
[2025-06-04] MEDS: LIDOCAINE PATCH REMOVAL MC SCH (21:53)
[2025-06-05 13:05] LABS: MCHC 32.1 g/dl (32.3-36.5); MEAN CELL VOLUME 86.2 fl (79.0-92.2); MEAN PLT VOLUME 10.6 fl (9.4-12.4); RDW 13.8 % (12.2-16.1)
[2025-06-05] MEDS: PRAMIPEXOLE DIHYDROCHLORIDE 0.25 MG TABLET PO SCH (21:59)
[2025-06-06] MEDS: CITALOPRAM HYDROBROMIDE 10 MG TABLET PO SCH (10:14)
[2025-06-06 14:53] VITALS: BMI 25.6
[2025-06-07 08:06] LABS: ABSOLUTE IMMATURE GRANULOCYTES 0.01 x10^3/uL (0.0-0.031); BASOPHILS # 0.02 x10^3/uL (0.01-0.08); EOSINOPHIL % 3.1 % (0.8-7.0); EOSINOPHILS # 0.09 x10^3/uL (0.04-0.54); MCHC 31.9 g/dl (32.3-36.5); MEAN CELL VOLUME 85.5 fl (79.0-92.2); MEAN PLT VOLUME 10.4 fl (9.4-12.4); MONOCYTE # 0.22 x10^3/uL (0.30-0.82); MONOCYTE % 7.5 % (5.3-12.2); RDW 13.5 % (12.2-16.1)
[2025-06-07 08:25] LABS: GLUCOSE,RANDOM 97.0 mg/dL (74-106); TOT PROT 6.6 g/dl (6.4-8.2)
[2025-06-07 08:26] LABS: CO2 26.0 mmol/L (21-32)
[2025-06-07 08:28] LABS: ALK PHOS 54.0 U/L (40-150)
[2025-06-07 08:30] LABS: SGOT/AST 24.0 U/L (5-34); SGPT/ALT 18.0 U/L (0-55)
[2025-06-07 08:31] LABS: CREATININE 1.64 mg/dL (0.55-1.3)
[2025-06-08 02:29] VITALS: RESP 16
[2025-06-08 06:55] VITALS: TEMP 97.9
[2025-06-08 07:12] LABS: ABSOLUTE IMMATURE GRANULOCYTES 0.01 x10^3/uL (0.0-0.031); BASOPHILS # 0.02 x10^3/uL (0.01-0.08); EOSINOPHIL % 2.5 % (0.8-7.0); EOSINOPHILS # 0.08 x10^3/uL (0.04-0.54); MCHC 31.3 g/dl (32.3-36.5); MEAN CELL VOLUME 87.2 fl (79.0-92.2); MEAN PLT VOLUME 11.0 fl (9.4-12.4); MONOCYTE # 0.24 x10^3/uL (0.30-0.82); MONOCYTE % 7.5 % (5.3-12.2); RDW 13.7 % (12.2-16.1)
[2025-06-08 07:40] LABS: GLUCOSE,RANDOM 95.0 mg/dL (74-106)
[2025-06-08 07:41] LABS: TOT PROT 7.2 g/dl (6.4-8.2)
[2025-06-08 07:42] LABS: CO2 28.0 mmol/L (21-32)
[2025-06-08 07:44] LABS: ALK PHOS 55.0 U/L (40-150)
[2025-06-08 07:46] LABS: CREATININE 1.81 mg/dL (0.55-1.3); SGOT/AST 23.0 U/L (5-34); SGPT/ALT 15.0 U/L (0-55)
[2025-06-08 08:47] VITALS: BP 134/95; PULSE 70
== END 2025-06-08 10:45 | disposition home or self-care (01) | DRG 65 ==
LOC: JER 10:19 → JERBED 12:48 → J4S 15:54 → OBSVTOIN 05-31 11:42
PROVIDERS: ADMIT Internal Medicine
DX: I63.9 Cerebral infarction, unspecified (principal); G81.91 Hemiplegia, unspecified affecting right dominant side; N17.9 Acute kidney failure, unspecified; I12.9 Hypertensive chronic kidney disease with stage 1 through stage 4 chronic kidney disease, or unspecified chronic kidney disease; E78.5 Hyperlipidemia, unspecified; N18.31 Chronic kidney disease, stage 3a; R51.9 Headache, unspecified; I48.0 Paroxysmal atrial fibrillation; G25.81 Restless legs syndrome; D64.9 Anemia, unspecified
CPT/HCPCS: 36415; 70450-TC; 70551-TC; 80053; 80061; 81003; 82550; 82962; 83036; 83735; 84100; 84484; 85025; 85610; 85730; 86803; 86850; 86900; 86901; 87389; 93005; 93010; 93306-TC; 93880-TC; 97116-GP; 97161-GP; 99285-25; G0378